=== PATIENT | female | born 1960 | race Caucasian/White ===

== ENCOUNTER 2019-02-14 18:07 | Emergency (ER) | payer OTHER ==
[2019-02-14 18:16] VITALS: BP 115/73; PULSE 93; TEMP 97.5; BMI 32.3
[2019-02-14] MEDS ORDERED: traMADol HCL 50 MG TABLET PO ONE (18:28)
--- NOTE | 2019-02-14 18:36 | PDOC ---
History of Present Illness - General Chief Complaint: Pain Stated Complaint: LEFT PATELLA PAIN Time Seen by Provider: 02/14/19 18:17 History Source: Patient Exam Limitations: No Limitations - History of Present Illness Initial Comments: 02/14/19 18:32 Patient is a 58-year-old female who presents to the ED with complaint of left knee pain that has been worsening since [employer]. She states that she broke a bone in her foot about a month ago and was wearing a boot. She stopped wearing the boot about 2 weeks later. She denies any known injury to her knee. She has been having difficulty putting weight on her left knee today. She has been taking Motrin but it has not helped. Her last dose was at 4:30 PM. Past History - Past Medical History Allergies/Adverse Reactions: Allergies Allergy/AdvReac Type Severity Reaction Status Date / Time ciprofloxacin [From Cipro] Allergy Verified 02/14/19 18:16 Cancer: Yes (2006 double mastectomy) COPD: No Diabetes: Yes HTN: Yes - Psycho Social/Smoking Cessation Hx Smoking History: Never smoked Review of Systems - Review of Systems Comments:: 02/14/19 18:33 - Review of Systems Able to Perform ROS?: Yes Constitutional: No: Fever, Chills, Loss of Appetite, Night Sweats, Weakness Respiratory: No: Cough, Shortness of Breath, Wheezing, Sputum Production Cardiac (ROS): No: Chest Pain, Chest Tightness, Palpitations, Irregular Heart Beat, Edema Musculoskeletal: No: Muscle Pain, Back Pain, Muscle Weakness, Neck Pain; positive L knee pain Integumentary: No: Lesions, Rash Neurological: No: Headache, Numbness, Tingling, *Physical Exam - Vital Signs Last Vital Signs Temp Pulse Resp BP Pulse Ox 97.5 F L 93 H 18 115/73 99 02/14/19 18:12 02/14/19 18:12 02/14/19 18:12 02/14/19 18:12 02/14/19 18:12 - Physical Exam 02/14/19 18:34 - Physical Exam General Appearance: Nourished, Appropriately Dressed, No Distress Neck: No Decreased range of motion Respiratory/Chest: Lungs Clear, Normal Breath Sounds. No Respiratory Distress, No Accessory Muscle Use Cardiovascular: Regular Rhythm, Regular Rate, S1, S2 Musculoskeletal: Normal Inspection; L knee with tenderness to the superior aspect of the knee, ROM from 0-110 degrees actively, negative Sally's sign, no gross deformity, no calf tenderness to palpation Extremity: Normal Capillary Refill, Normal Inspection Integumentary: Normal Color, Dry. 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 Medical Decision Making - Medical Decision Making 02/14/19 19:19 The patient has been made aware that her x-ray does not show any acute fractures or dislocations. She may have an underlying occult fracture as her pain is similar to when she had a tibial plateau fracture last year. We will place the patient in a knee immobilizer and she has been made aware that she should remain nonweightbearing on the left lower extremity. She should follow- up with her orthopedist whom she also saw this past Friday and is pending an MRI on her left knee. I have made the patient aware that the MRI will tell further if there is an underlying fracture. She can continue to take Tylenol or ibuprofen for her pain. Discharge - Discharge Information Problems reviewed: Yes Clinical Impression/Diagnosis: Knee pain, left Qualifiers: Chronicity: acute Qualified Code(s): M25.562 - Pain in left knee Condition: Stable Disposition: HOME - Follow up/Referral Referrals: Rudy Ivy DO [Staff Physician] - - Patient Discharge Instructions Patient Printed Discharge Instructions: DI for Knee Pain Additional Instructions: You should keep the knee immobilizer on your left knee at all times. You should remain nonweightbearing on the left lower extremity until you have the MRI that was previously ordered for you. Continue to take Tylenol or ibuprofen for your pain. Follow-up with your previous orthopedist or you can follow-up with the above referred orthopedist for further evaluation and treatment. - Post Discharge Activity Work/Back to School Note: Back to Work
[2019-02-14] MEDS ORDERED: traMADol HCL 50 MG TABLET ONE (18:42)
== END 2019-02-14 19:36 | disposition home or self-care (01) ==
LOC: JERFT 18:07
DX: M25.562 Pain in left knee (principal); Z87.81 Personal history of (healed) traumatic fracture; I10 Essential (primary) hypertension; E11.9 Type 2 diabetes mellitus without complications; Z85.3 Personal history of malignant neoplasm of breast; Z90.13 Acquired absence of bilateral breasts and nipples; Z88.1 Allergy status to other antibiotic agents
CPT/HCPCS: 73560-TC-LT-FY; 99282-25

== ENCOUNTER 2020-05-12 17:06 | Emergency (ER) | payer OTHER ==
[2020-05-12 17:14] VITALS: TEMP 98.7; BMI 32.3
[2020-05-12] MEDS ORDERED: ONDANSETRON 4 MG/2 ML VIAL IVPUSH ONE (18:37)
[2020-05-12] MEDS ORDERED: KETOROLAC TROMETHAMINE 30 MG/1 ML VIAL IVPUSH ONE (18:37)
[2020-05-12] MEDS ORDERED: KETOROLAC TROMETHAMINE 30 MG/1 ML VIAL ONE (18:45)
[2020-05-12] MEDS ORDERED: ONDANSETRON 4 MG/2 ML VIAL ONE (18:45)
[2020-05-12 19:13] LABS: BASO % 0.6 % (0-2.0); EOS % 0.6 % (0-4.5); HEMATOCRIT 39.3 % (32.4-45.2); HEMOGLOBIN 13.1 GM/dL (10.7-15.3); LYMPH % 11.1 % (8-40); MCH 28.3 pg (25.7-33.7); MCHC 33.4 g/dl (32.0-36.0); MEAN CELL VOLUME 84.8 fl (80-96); MEAN PLT VOLUME 8.2 fl (7.5-11.1); MONO % 4.8 % (3.8-10.2); NEUT % 82.9 % (42.8-82.8); PLATELET COUNT 225 K/MM3 (134-434); RBC 4.63 M/mm3 (3.60-5.2); RDW 14.2 % (11.6-15.6); WHITE BLOOD COUNT 10.8 K/mm3 (4.0-10.0)
[2020-05-12 19:20] LABS: INR 1.08 (0.83-1.09); PROTHROMBIN TIME (PATIENT) 13.3 SEC (9.7-13.0)
[2020-05-12 19:24] LABS: EPI CELLS 4 /uL (0-25.1); HYALINE CASTS 1 /uL (0-3.1); URINE APPEARANCE TURBID; URINE BACTERIA 65 /uL (0-1359); URINE BILIRUBIN NEGATIVE (NEGATIVE); URINE COLOR YELLOW; URINE GLUCOSE (UA) NEGATIVE (NEGATIVE); URINE KETONE NEGATIVE (NEGATIVE); URINE LEUK ESTERASE 1+ (NEGATIVE); URINE NITRITE NEGATIVE (NEGATIVE); URINE PROTEIN 1+ (NEGATIVE); URINE RBC 65 /uL (0-23.9); URINE UROBILINOGEN 0.2 mg/dL (0.2-1.0); URINE WBC 99 /uL (0-25.8)
[2020-05-12 19:32] LABS: POTASSIUM 4.4 mmol/L (3.5-5.1)
[2020-05-12 19:34] LABS: CALCIUM 9.8 mg/dL (8.5-10.1)
[2020-05-12 19:35] LABS: BLOOD UREA NITROGEN 24.1 mg/dL (7-18)
[2020-05-12 19:38] LABS: CREATININE 1.2 mg/dL (0.55-1.3)
[2020-05-12 19:39] LABS: BILIRUBIN,TOTAL 0.4 mg/dL (0.2-1); TOT PROT 7.9 g/dl (6.4-8.2)
[2020-05-12] MEDS ORDERED: SODIUM CHLORIDE 0.9% 500 ML INFUS.BAG IV ONE (20:34)
[2020-05-12 22:52] LABS: URINE CRYSTALS URIC ACID /hpf
[2020-05-12] MEDS ORDERED: ACETAMINOPHEN 500 MG TABLET (FP) PO ONE (23:03)
[2020-05-12] MEDS ORDERED: CEPHALEXIN MONOHYDRATE 500 MG CAPSULE (UD) PO ONE (23:06)
[2020-05-12] MEDS ORDERED: ACETAMINOPHEN 325 MG TABLET (FP) ONE (23:23)
[2020-05-12] MEDS ORDERED: CEPHALEXIN MONOHYDRATE 500 MG CAPSULE (UD) ONE ×2 (23:23→23:25)
[2020-05-12 23:29] VITALS: BP 118/70; PULSE 75
== END 2020-05-12 23:29 | disposition home or self-care (01) ==
LOC: JER 17:06
PROC: 3E0333Z Introduction of Anti-inflammatory into Peripheral Vein, Percutaneous Approach (ICD-10-PCS; principal; 2020-05-12)
PROC: 3E033GC Introduction of Other Therapeutic Substance into Peripheral Vein, Percutaneous Approach (ICD-10-PCS; 2020-05-12)
DX: R10.32 Left lower quadrant pain (principal)
CPT/HCPCS: 36415; 74176-TC; 80053; 81003; 83690; 85025; 85610; 87086; 99284-25

== ENCOUNTER 2024-01-29 03:49 | Day surgery (SDC) | payer BC ==
[2024-01-27 13:12] VITALS: BMI 31.9
[2024-01-29 08:08] VITALS: RESP 16; TEMP 97.6
[2024-01-29] MEDS: BUPIVACAINE HCL/PF 0.5% (5MG/ML) 10 ML VIAL IJ ONE (09:32)
[2024-01-29] MEDS: IOHEXOL 180 MG/1 ML ML IJ ONE ×2 (09:35)
[2024-01-29 09:59] VITALS: BP 103/61; PULSE 77
[2024-01-29] MEDS ORDERED: ACETAMINOPHEN 500 MG TABLET (FP) ONE (10:17)
[2024-01-29] MEDS: ACETAMINOPHEN 500 MG TABLET (FP) PO PRN (10:30)
== END 2024-01-29 10:45 | disposition home or self-care (01) ==
LOC: JASU-SURG 03:49
PROVIDERS: ATTEND Pain Medicine Pain Medicine
PROC: BR14YZZ Fluoroscopy of Cervical Facet Joint(s) using Other Contrast (ICD-10-PCS; 2024-01-29)
PROC: 3E0T3BZ Introduction of Anesthetic Agent into Peripheral Nerves and Plexi, Percutaneous Approach (ICD-10-PCS; principal; 2024-01-29 09:30)
DX: M47.812 Spondylosis without myelopathy or radiculopathy, cervical region (principal)
CPT/HCPCS: 76000-TC-FY